=== PATIENT | male | born 1950 | race Caucasian/White ===

== ENCOUNTER 2019-05-04 08:48 | Day surgery (SDC) | payer OTHER ==
[~2019-05-04] VITALS: Ht 177.8 cm; Wt 98.0 kg
[~2019-05-04 08:48] MED LIST: BUSP15TA60 PO; DOXA1TAB42 PO; FENO160T8 PO; LOSA-69 PO; MELO1TAB56 PO; PANT40TA2 PO
[2019-05-04] MEDS ORDERED: ceFAZolin 1GM/50ML 100 ML IV ONE (10:39)
[2019-05-04] MEDS ORDERED: MIDAZOLAM HCL 1MG/1ML-2 ML VIAL ONE ×2 (11:02→12:08)
[2019-05-04] MEDS ORDERED: ROCURONIUM 10MG/ML 10ML VIAL IV ONE (11:03)
[2019-05-04] MEDS ORDERED: LIDOCAINE 2% (LOCAL ANESTH.) PF 5ml SDV ONE (11:03)
[2019-05-04] MEDS ORDERED: ROPIVACAINE 0.5% (5MG/ML) 20ML AMPULE IJ ONE (11:49)
[2019-05-04] MEDS ORDERED: LIDOCAINE W/ EPINEPHRINE 2% INJ 20ML VIAL ONE (11:49)
[2019-05-04] MEDS ORDERED: SUCCINYLCHOLINE CHLORIDE 20 MG/ML 10ML VIAL IV ONE (11:49)
[2019-05-04] MEDS ORDERED: ETOMIDATE (2MG/ML) 20ML VIAL IV ONE (11:57)
[2019-05-04] MEDS ORDERED: METOCLOPRAMIDE HCL 5MG/ml INJ 2ml VIAL ONE (12:07)
[2019-05-04] MEDS ORDERED: fentaNYL CITRATE 100 MCG/2 ML VL ONE (12:32)
[2019-05-04] MEDS ORDERED: NALOXONE HCL 0.4 MG/ML VIAL IV PRN (12:45)
[2019-05-04] MEDS ORDERED: ONDANSETRON HCL 4 MG/2 ML VIAL IV PRN (12:45)
[2019-05-04] MEDS ORDERED: HYDROmorphone HCL 2 MG/ML VL IV PRN ×2 (12:45)
[2019-05-04] MEDS ORDERED: SODIUM CHLORIDE LOCK 10 ML ONE (12:46)
[2019-05-04] MEDS ORDERED: ePHEDrine SULFATE 50 MG/ML AMP ONE (12:46)
[2019-05-04] MEDS ORDERED: GLYCOPYRROLATE 0.2 MG/ML 1ML VIAL ONE (13:39)
[2019-05-04] MEDS ORDERED: NEOSTIGMINE 1 MG/ML INJ (10mg/10ML VIAL) ONE (13:39)
[2019-05-04] MEDS ORDERED: ALBUTEROL SULF 2.5 MG/0.5ML(0.5%) NEB SOLN NEB ONE (15:00)
[2019-05-04] MEDS ORDERED: IPRATROPIUM BROM 0.5 MG/2.5ML INH SOL NEB ONE (15:00)
[2019-05-04] MEDS ORDERED: ALBUTEROL SULF 2.5 MG/0.5ML(0.5%) NEB SOLN ONE (15:08)
[2019-05-04] MEDS ORDERED: IPRATROPIUM BROM 0.5 MG/2.5ML INH SOL ONE (15:08)
--- NOTE | 2019-05-04 15:14 | NUR ---
MN GIVEN WITH 1.25MG ALBUTEROL AND 0.5MG ATROVENT VIA AEROSOL MASK 7L/MIN. PT TOLERATING WELL. HR 73 BPM, RR18 BPM, BS ARE DIMINISHED TO AUSCULTATION, SKIN IS DRY AND WARM TO THE TOUCH. NO ACUTE DISTRESS NOTICED.
[2019-05-04] MEDS ORDERED: HYDROmorphone HCL 2 MG/ML VL ONE (15:55)
[2019-05-04 16:24] VITALS: BP 139/78
== END 2019-05-04 15:25 | disposition home or self-care (01) ==
LOC: SUR 08:48
PROVIDERS: ATTEND Orthopaedic Surgery Adult Reconstructive Orthopaedic Surgery
DX: M13.812 Other specified arthritis, left shoulder (principal); I10 Essential (primary) hypertension; K21.9 Gastro-esophageal reflux disease without esophagitis; E66.01 Morbid (severe) obesity due to excess calories; D64.9 Anemia, unspecified; E07.9 Disorder of thyroid, unspecified; Z79.899 Other long term (current) drug therapy; Z86.19 Personal history of other infectious and parasitic diseases; Z98.890 Other specified postprocedural states; Z88.5 Allergy status to narcotic agent; Z68.31 Body mass index [BMI] 31.0-31.9, adult; Z88.8 Allergy status to other drugs, medicaments and biological substances; E78.00 Pure hypercholesterolemia, unspecified; F41.9 Anxiety disorder, unspecified; Z87.891 Personal history of nicotine dependence
CPT/HCPCS: 29823; 29827; 94640; C1713; J0330; J0690; J1170; J2001; J2250; J2405; J2765; J2795; J3010; J7611; J7644; A4565

== ENCOUNTER 2024-07-20 21:26 | Emergency (ER) | payer OTHER ==
[~2024-07-20] VITALS: Ht 177.8 cm; Wt 112.0 kg
[~2024-07-20 21:26] MED LIST changes: +FENO160T PO; -FENO160T8 PO; +LOSA-534 PO; -LOSA-69 PO; +MELO15TA29 PO; -MELO1TAB56 PO
[2024-07-20 21:30] VITALS: BP 143/80; PULSE 101; RESP 20; O2SAT 97
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
[2024-07-20] MEDS ORDERED: OXYC325T14 PO (23:07)
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
== END 2024-07-20 23:38 | disposition home or self-care (01) ==
LOC: ER 21:26
DX: S22.49XA Multiple fractures of ribs, unspecified side, initial encounter for closed fracture (principal); S32.008A Other fracture of unspecified lumbar vertebra, initial encounter for closed fracture; I10 Essential (primary) hypertension; Z88.8 Allergy status to other drugs, medicaments and biological substances; Z79.899 Other long term (current) drug therapy; X58.XXXA Exposure to other specified factors, initial encounter; Y93.89 Activity, other specified; Y92.89 Other specified places as the place of occurrence of the external cause; Y99.8 Other external cause status
CPT/HCPCS: 73502; 73610